=== PATIENT | female | born 1960 ===

== ENCOUNTER 2021-03-07 11:22 | Day surgery (SDC) | payer OTHER ==
[2021-03-07] MEDS ORDERED: PRED FORTE5 M1 LEFTEYE (17:08)
[2021-03-07] MEDS ORDERED: Cyclogyl 1% Opth2 ML LEFTEYE (17:09)
[2021-03-07] MEDS ORDERED: TOBRADEX ST EYE5 M1 LEFTEYE (17:11)
[2021-03-07] MEDS ORDERED: Vancomycin500 MG/100 LEFTEYE (17:13)
--- NOTE | 2021-03-07 17:39 | NUR ---
TOBRAMYCIN EYE DROP 1 DROP LEFT EYE VANCO EYE DROP 1 DROP LEFT EYE AFTER 5 MINUTES
== END 2021-03-07 17:17 | disposition home or self-care (01) ==
LOC: ATC 11:22
DX: H16.9 Unspecified keratitis (principal); Z88.2 Allergy status to sulfonamides; Z79.899 Other long term (current) drug therapy
CPT/HCPCS: 99212; A9270; J3260; J3370

== ENCOUNTER 2021-03-14 04:09 | Day surgery (SDC) | payer OTHER ==
[~2021-03-14 04:09] MED LIST: Cyclogyl 1% Opth2 ML LEFTEYE; PRED FORTE5 M1 LEFTEYE; TOBRADEX ST EYE5 M1 LEFTEYE; Vancomycin500 MG/100 LEFTEYE
== END 2021-03-14 09:46 | disposition home or self-care (01) ==
LOC: ATC 04:09
DX: H16.9 Unspecified keratitis (principal); Z88.2 Allergy status to sulfonamides
CPT/HCPCS: 99211; A9270; J3260; J3370